=== PATIENT | male | born 1960 | race Caucasian/White ===

== ENCOUNTER 2022-02-07 12:57 | Emergency (ER) | payer MEDICAID ==
[~2022-02-07] VITALS: Ht 175.3 cm; Wt 75.0 kg
[2022-02-07 13:04] VITALS: BP 137/86
[2022-02-07] MEDS ORDERED: ACETAMINOPHEN 325MG TABLET PO ONE (13:15)
[2022-02-07 14:30] LABS: *AMPHETAMINES SCREEN URINE NEGATIVE (NEGATIVE); *BARBITURATES SCREEN URINE NEGATIVE (NEGATIVE); *BENZODIAZEPINES SCREEN URINE NEGATIVE (NEGATIVE); *COCAINE SCREEN URINE NEGATIVE (NEGATIVE); CANNABINOID URINE SCREEN PRESUMTIVE POSITIVE (NEGATIVE); METHADONE URINE SCREEN NEGATIVE (NEGATIVE); OPIATES URINE SCREEN NEGATIVE (NEGATIVE); PHENCYCLIDINE URINE SCREEN NEGATIVE (NEGATIVE)
[2022-02-07 15:11] LABS: BASOPHILS % 0.9 % (0.0-2.0); EOSINOPHILS % 1.5 % (0.0-5.0); HEMATOCRIT. 32.7 % (42.0-52.0); HEMOGLOBIN. 11.1 g/dL (14.0-18.0); LYMPHOCYTES % 32.6 % (20.0-50.0); MEAN CORPUSCULAR HEMOGLOBIN 30.3 pg (28.0-32.0); MEAN CORPUSCULAR VOLUME 89.1 fL (80.0-94.0); MEAN PLATELET VOLUME 8.1 fl (7.4-10.4); MONOCYTES % 10.2 % (2.0-8.0); NEUTROPHILS % 54.8 % (40.0-76.0); PLATELET 233 x1000/uL (130-400); RED BLOOD CELL COUNT 3.67 mill/uL (4.7-6.1)
[2022-02-07 15:17] LABS: CHLORIDE 103 mEq/L (98-107)
[2022-02-07 15:28] LABS: ETHANOL BLOOD < 10 mg/dL
[2022-02-07] MEDS ORDERED: ACET-2708 MT (15:52)
[2022-02-07] MEDS ORDERED: ACETAMINOPHEN 325MG TABLET PO NR (16:15)
== END 2022-02-07 16:43 | disposition home or self-care (01) ==
LOC: ER 13:11
DX: R55 Syncope and collapse (principal); S09.90XA Unspecified injury of head, initial encounter; D64.9 Anemia, unspecified; E78.00 Pure hypercholesterolemia, unspecified; I10 Essential (primary) hypertension; Z13.9 Encounter for screening, unspecified; Z98.890 Other specified postprocedural states; Z86.59 Personal history of other mental and behavioral disorders; W18.30XA Fall on same level, unspecified, initial encounter; Y93.89 Activity, other specified; Y92.89 Other specified places as the place of occurrence of the external cause; Y99.8 Other external cause status
CPT/HCPCS: 36415; 71045; 80053; 80305; 80320; 83880; 84484; 85025; 93005; 99285; G0480

== ENCOUNTER 2022-03-22 14:44 | Inpatient (IN) | payer MEDICAID ==
[~2022-03-22] VITALS: Ht 172.7 cm; Wt 77.8 kg
[~2022-03-22 14:44] MED LIST: ACET-2708 MT; MVI, ADULT NO.1 10 ML, FOLIC ACID 1 MG, THIAMINE HCL 100 MG in SODIUM CHLORIDE 0.9% 1,0... IV ONE
[2022-03-22] MEDS ORDERED: SODIUM CHLORIDE 0.9% 1,000 ML IV ONE (15:45)
[2022-03-22 16:05] LABS: BASOPHILS % 0.7 % (0.0-2.0); EOSINOPHILS % 2.7 % (0.0-5.0); HEMATOCRIT. 26.4 % (42.0-52.0); HEMOGLOBIN. 8.9 g/dL (14.0-18.0); LYMPHOCYTES % 31.1 % (20.0-50.0); MEAN CORPUSCULAR VOLUME 89.2 fL (80.0-94.0); MEAN PLATELET VOLUME 8.3 fl (7.4-10.4); MONOCYTES % 10.7 % (2.0-8.0); NEUTROPHILS % 54.8 % (40.0-76.0); PLATELET 200 x1000/uL (130-400); RED BLOOD CELL COUNT 2.96 mill/uL (4.7-6.1); RED CELL DISTRIBUTION WIDTH 15.4 % (11.6-14.6)
[2022-03-22 16:12] LABS: PARTIAL THROMBOPLASTIN TIME 31.4 sec (23.4-31.0); PROTHROMBIN TIME 11.2 sec (9.6-11.0)
[2022-03-22 16:16] LABS: CHLORIDE 98 mEq/L (98-107)
[2022-03-22 17:33] LABS: CLARITY URINE CLEAR (CLEAR); COLOR URINE YELLOW (YELLOW); KETONES URINE NEGATIVE (NEGATIVE); LEUKOCYTE ESTERASE URINE NEGATIVE (NEGATIVE); NITRITE URINE NEGATIVE (NEGATIVE); OCCULT BLOOD URINE NEGATIVE (NEGATIVE); PROTEIN URINE NEGATIVE (NEGATIVE); SPECIFIC GRAVITY URINE 1.004 (1.005-1.030); UROBILINOGEN URINE 0.2 E.U./dL (0.2-1.0)
[2022-03-22] MEDS ORDERED: ASPIRIN 325MG EC TABLET PO ONE (17:45)
[2022-03-22 22:45] VITALS: BP 153/80
[2022-03-22] MEDS ORDERED: CLONIDINE 0.1MG TABLET PO PRN (22:45)
[2022-03-22] MEDS ORDERED: DOCUSATE SODIUM 100MG CAPSULE PO PRN (22:45)
[2022-03-22] MEDS ORDERED: NITROGLYCERIN 0.4MG TABLET SL SL PRN (22:45)
[2022-03-22] MEDS ORDERED: IPRATROPIUM/ALBUTEROL 0.5-3(2.5)MG/3ML NEB NEB PRN (22:45)
[2022-03-22] MEDS ORDERED: ONDANSETRON HCL 4MG/2ML INJ IV PRN (22:45)
[2022-03-22] MEDS ORDERED: MAGNESIUM/ALUMINUM HYDROXIDE/SIMETHICONE 30ML UDC PO PRN (22:45)
[2022-03-22] MEDS ORDERED: ACETAMINOPHEN 325MG TABLET PO PRN ×2 (22:45)
[2022-03-22] MEDS: SODIUM CHLORIDE 0.9% 1,000 ML IV SCH (22:45)
[2022-03-22] MEDS ORDERED: KETOROLAC 15MG/ML VIAL IV PRN (22:45)
[2022-03-22] MEDS ORDERED: ZOLPIDEM TARTRATE 5MG TABLET PO PRN (22:45)
[2022-03-22] MEDS ORDERED: GUAIFENESIN 200MG/10ML SUGAR FREE UDC PO PRN (22:45)
[2022-03-22] MEDS ORDERED: MVI, ADULT NO.1 10 ML, FOLIC ACID 1 MG, THIAMINE HCL 100 MG in SODIUM CHLORIDE 0.9% 1,0... IV ONE ×4 (23:45)
[2022-03-23] MEDS: AMLODIPINE 10MG TABLET PO SCH ×2 (00:08→08:57)
[2022-03-23 00:13] LABS: ETHANOL BLOOD < 10 mg/dL; HDL CHOLESTEROL 48 mg/dL (40-59); LDL CHOLESTEROL 42 mg/dL (5-100); T4 FREE 0.92 ng/dL (0.76-1.46); TOTAL IRON BINDING CAPACITY 547 ug/dL (250-450)
[2022-03-23 01:26] LABS: VITAMIN B12 SERUM 1837 pg/mL (211-911)
[2022-03-23 01:33] LABS: FOLIC ACID (FOLATE) SERUM > 20.00 ng/mL (>5.38)
[2022-03-23 04:57] LABS: SODIUM URINE RANDOM 70 mEq/L
[2022-03-23 05:01] LABS: *AMPHETAMINES SCREEN URINE NEGATIVE (NEGATIVE); *BARBITURATES SCREEN URINE NEGATIVE (NEGATIVE); *BENZODIAZEPINES SCREEN URINE NEGATIVE (NEGATIVE); *COCAINE SCREEN URINE NEGATIVE (NEGATIVE); CANNABINOID URINE SCREEN PRESUMTIVE POSITIVE (NEGATIVE); METHADONE URINE SCREEN NEGATIVE (NEGATIVE); OPIATES URINE SCREEN NEGATIVE (NEGATIVE); PHENCYCLIDINE URINE SCREEN NEGATIVE (NEGATIVE)
[2022-03-23 07:29] LABS: BASOPHILS % 0.9 % (0.0-2.0); LYMPHOCYTES % 28.2 % (20.0-50.0); MEAN CORPUSCULAR VOLUME 89.8 fL (80.0-94.0); MEAN PLATELET VOLUME 8.9 fl (7.4-10.4); MONOCYTES % 12.7 % (2.0-8.0); NEUTROPHILS % 57.2 % (40.0-76.0); PLATELET 279 x1000/uL (130-400); RED BLOOD CELL COUNT 3.71 mill/uL (4.7-6.1); RED CELL DISTRIBUTION WIDTH 15.8 % (11.6-14.6)
[2022-03-23 07:51] LABS: HEMATOCRIT. 33.3 % (42.0-52.0); HEMOGLOBIN. 11.1 g/dL (14.0-18.0)
[2022-03-23 07:55] LABS: CHLORIDE 106 mEq/L (98-107)
[2022-03-23 08:00] VITALS: BP 130/85
[2022-03-23 08:11] LABS: CREATINE KINASE 138 IU/L (39-308); PHOSPHORUS 3.2 mg/dL (2.5-4.9)
[2022-03-23] MEDS: ENOXAPARIN 40MG/0.4ML SYR SUBCUT SCH (08:57)
[2022-03-23] MEDS: FAMOTIDINE 20MG TABLET PO SCH ×2 (08:58→21:04)
[2022-03-23] MEDS: ASPIRIN 81MG EC TABLET PO SCH (08:58)
[2022-03-23] MEDS: SODIUM CHLORIDE 0.9% 1,000 ML IV SCH ×2 (09:03→21:04)
[2022-03-23 12:00] VITALS: BP 135/82
[2022-03-23 16:00] VITALS: BP 145/80
[2022-03-23 17:07] LABS: CREATINE KINASE MB FRACTION 1.5 ng/mL (0.5-3.6)
[2022-03-23 18:00] VITALS: BP 145/80
[2022-03-23 20:00] VITALS: BP 110/68
[2022-03-24] VITALS: BP 112/58
[2022-03-24 04:00] VITALS: BP 129/63
[2022-03-24 08:00] VITALS: BP 129/71
[2022-03-24] MEDS: ASPIRIN 81MG EC TABLET PO SCH (08:51)
[2022-03-24] MEDS: FAMOTIDINE 20MG TABLET PO SCH ×2 (08:51→20:57)
[2022-03-24] MEDS: AMLODIPINE 10MG TABLET PO SCH (08:52)
[2022-03-24] MEDS: ENOXAPARIN 40MG/0.4ML SYR SUBCUT SCH (08:52)
[2022-03-24 12:00] VITALS: BP 115/75
[2022-03-24] MEDS: HALOPERIDOL 5MG TABLET PO SCH ×2 (12:07→17:00)
[2022-03-24] MEDS: BENZTROPINE MESYLATE 1MG TABLET PO SCH ×2 (12:08→20:57)
[2022-03-24] MEDS: SERTRALINE HCL 50MG TABLET PO SCH (12:08)
[2022-03-24 15:09] VITALS: BP 120/68
[2022-03-24] MEDS: SODIUM CHLORIDE 0.9% 1,000 ML IV SCH (15:39)
[2022-03-24] MEDS ORDERED: SERT100T PO (17:40)
[2022-03-24] MEDS ORDERED: LISI-650 PO (17:40)
[2022-03-24] MEDS ORDERED: ASPI-1406 PO (17:40)
[2022-03-24] MEDS ORDERED: HALO5TAB PO (17:40)
[2022-03-24] MEDS ORDERED: TEMA30CA5 PO (17:40)
[2022-03-24] MEDS ORDERED: CONGENTIN PO (17:40)
[2022-03-24] MEDS ORDERED: HALO10TA13 PO (17:40)
[2022-03-24] MEDS ORDERED: QUET200T PO (17:40)
[2022-03-24] MEDS ORDERED: DIVA500T3 PO (17:40)
[2022-03-24] MEDS ORDERED: TRAZ-251 PO (17:40)
[2022-03-24 20:17] VITALS: BP 115/64
[2022-03-25 00:03] VITALS: BP 137/80
[2022-03-25] MEDS: SODIUM CHLORIDE 0.9% 1,000 ML IV SCH (04:25)
[2022-03-25 04:30] VITALS: BP 134/68
[2022-03-25 08:00] VITALS: BP 111/46
[2022-03-25] MEDS: ENOXAPARIN 40MG/0.4ML SYR SUBCUT SCH (09:25)
[2022-03-25] MEDS: BENZTROPINE MESYLATE 1MG TABLET PO SCH (09:25)
[2022-03-25] MEDS: HALOPERIDOL 5MG TABLET PO SCH ×2 (09:25→17:10)
[2022-03-25] MEDS: SERTRALINE HCL 50MG TABLET PO SCH (09:25)
[2022-03-25] MEDS: AMLODIPINE 10MG TABLET PO SCH (09:26)
[2022-03-25] MEDS: FAMOTIDINE 20MG TABLET PO SCH (09:26)
[2022-03-25] MEDS: ASPIRIN 81MG EC TABLET PO SCH (09:26)
[2022-03-25 12:00] VITALS: BP 121/74
[2022-03-25 15:50] VITALS: BP 121/74
== END 2022-03-25 18:48 | disposition home or self-care (01) | DRG 52 ==
LOC: ER 14:44 → 6WST 20:31 → EDBEDREQTM 21:07 → EDBEDREQ 21:07 → ENRESERV 22:21
PROVIDERS: ADMIT Internal Medicine; ATTEND Internal Medicine
DX: G92.8 Other toxic encephalopathy (principal); E44.1 Mild protein-calorie malnutrition; E83.51 Hypocalcemia; E87.1 Hypo-osmolality and hyponatremia; F25.9 Schizoaffective disorder, unspecified; D63.8 Anemia in other chronic diseases classified elsewhere; I10 Essential (primary) hypertension; F32.A Depression, unspecified; Z68.26 Body mass index [BMI] 26.0-26.9, adult; Z91.52 Personal history of nonsuicidal self-harm
CPT/HCPCS: 36415; 70551; 71045; 80053; 80061; 80305; 80320; 81003; 82550; 82553; 82607; 82746; 82962; 83036; 83540; 83550; 83735; 83880; 83930; 83935; 84100; 84300; 84439; 84443; 84484; 85025; 93306; 93970; 97162; 97165; 99285; J1630; J1650; J1885; J3411; J3490; J7030; G0480

== ENCOUNTER 2022-07-18 06:40 | Emergency (ER) | payer MEDICAID ==
[~2022-07-18] VITALS: Ht 175.3 cm; Wt 73.0 kg
[~2022-07-18 06:40] MED LIST changes: +ASPI-1406 PO; +CONGENTIN PO; +DIVA500T3 PO; +HALO10TA13 PO; +HALO5TAB PO; +LISI-650 PO; -MVI, ADULT NO.1 10 ML, FOLIC ACID 1 MG, THIAMINE HCL 100 MG in SODIUM CHLORIDE 0.9% 1,0... IV ONE; +QUET200T PO; +SERT100T PO; +TEMA30CA5 PO; +TRAZ-251 PO
[2022-07-18 06:41] VITALS: BP 145/86
[2022-07-18] MEDS ORDERED: IBUPROFEN 400MG TABLET PO ONE (17:15)
[2022-07-18] MEDS ORDERED: ACETAMINOPHEN 325MG TABLET PO ONE (17:15)
[2022-07-18] MEDS ORDERED: TOPUD MT (18:17)
== END 2022-07-18 18:25 | disposition home or self-care (01) ==
LOC: ER 06:40
DX: B34.9 Viral infection, unspecified (principal); E11.9 Type 2 diabetes mellitus without complications; J44.1 Chronic obstructive pulmonary disease with (acute) exacerbation; I10 Essential (primary) hypertension; Z79.899 Other long term (current) drug therapy; Z86.59 Personal history of other mental and behavioral disorders
CPT/HCPCS: 71045; 87426; 87804; 99284; C9803